=== PATIENT | male | born 2000 | race Caucasian/White ===

== ENCOUNTER → 2021-04-06 | Outpatient (CLI) | payer OTHER ==
--- NOTE | 2021-04-06 16:26 | US ---
EXAMINATION TYPE: US kidneys/renal and bladder DATE OF EXAM: 04/06/2021 COMPARISON: NONE CLINICAL HISTORY: 20-year-old male R31.0 GROSS HEMATURIA. & LLQ pain x 1 week TECHNIQUE: Multiple sonographic images of the kidneys and bladder are obtained. FINDINGS: EXAM MEASUREMENTS: Right Kidney: 10.2 x 5.3 x 4.1 cm Left Kidney: 11.7 x 5.6 x 5.2 cm Post Void Residual Volume: 0 mL Right Kidney: No hydronephrosis or masses seen. There are 2 simple cysts at the mid pole measurin ) 0.7 x 0.7 x 0.6 cm, 2) 1.2 x 1.2 x 1.2 cm Left Kidney: No hydronephrosis or masses seen Bladder: Initial partial distention limits evaluation. Bilateral Jets seen: No Normal Post Void Residual: Yes IMPRESSION: 1. No hydronephrosis. 2. 2 small incidental cysts in the right kidney measuring up to 1.2 cm.
== END | disposition home or self-care (01) ==
LOC: RADUSWWP 15:08
PROVIDERS: ATTEND Urology
DX: N28.1 Cyst of kidney, acquired (principal)
CPT/HCPCS: 76770

== ENCOUNTER → 2021-08-08 | Outpatient (CLI) | payer BC ==
--- NOTE | 2021-08-08 20:55 | CT ---
EXAMINATION TYPE: CT urogram wo/w con DATE OF EXAM: 08/08/2021 INDICATION: hematuria CT DLP: 1097.6 mGy.cm Automated Exposure Control for Dose Reduction was Utilized. TECHNIQUE AND CONTRAST: CT scan of the abdomen and pelvis is performed without and with IV Contrast, as per CT urogram protoc ol. The patient injected with 100 mL of Isovue 300. 3-D reconstruction images were generated on an in dependent workstation and reviewed. COMPARISON: Ultrasound dated 04/06/2021 FINDINGS: 12 mm nonobstructing stone is seen in the right renal pelvis. 5 mm partially obstructing stone seen a t the most inferior aspect of the left ureter, causing mild left-sided ureteric and left renal collec ting system fullness. No other significant radiodense urinary calculi. Bilateral renal cysts without suspicious feature. Grossly unremarkable kidneys otherwise. No suspicio us ureteric lesion. Grossly unremarkable urinary bladder. Unremarkable prostate and seminal vesicles. Unremarkable liver, gallbladder, spleen, pancreas, adrenals, abdominal aorta and IVC. Unremarkable no ndistended stomach, duodenum and small bowel. No gross colonic abnormality. Normal appendix. No suspi cious lymphadenopathy or sizable ascites. Unremarkable lung bases. No aggressive bone lesion. IMPRESSION: 12 mm right renal pelvis nonobstructing stone with 5 mm partially obstructing stone at the most infer ior aspect of the left ureter as described above. Recommend clinical correlation and correlation with urinalysis results. Further urology consultation can be considered. Other findings as described marj stovall
== END | disposition home or self-care (01) ==
LOC: RADCTMAIN 13:42
PROVIDERS: ATTEND Urology
DX: N20.2 Calculus of kidney with calculus of ureter (principal)
CPT/HCPCS: 74178; 74400; Q9967

== ENCOUNTER → 2021-08-15 | Outpatient (CLI) | payer BC ==
--- NOTE | 2021-08-15 15:25 | XR ---
EXAMINATION TYPE: XR KUB DATE OF EXAM: 08/15/2021 COMPARISON: 08/08/2021 HISTORY: Pain TECHNIQUE: One view abdominal series FINDINGS: The osseous structures are intact. The bowel gas pattern is nonspecific. There is a 11 mm calcification overlying the right kidney. No definite calcifications overlying the l eft kidney. There is a 4 mm calcific density in the left hemipelvis is stable. IMPRESSION: 1. Stable right renal calculus measuring 11 mm likely in the region of the renal pelvis. 2. There is approximate 4 mm calcification in the expected region of the left UVJ stable from prior e xam..
== END | disposition home or self-care (01) ==
LOC: RADXRMAIN 15:08
PROVIDERS: ATTEND Urology
DX: N20.0 Calculus of kidney (principal)
CPT/HCPCS: 74018

== ENCOUNTER → 2021-08-24 | Outpatient (CLI) | payer BC ==
--- NOTE | 2021-08-24 11:22 | XR ---
EXAMINATION TYPE: XR KUB DATE OF EXAM: 08/24/2021 HISTORY: Pain Comparison: None.Single KUB is submitted for interpretation. Findings: Right renal calculi: 1.2 cm calculus upper pole right kidney. Right ureteral calculi: None Visualized. Left renal calculi: None Visualized. Left ureteral calculi: 3 mm calculus in the region of the left UVJ. Pelvic calcifications: None Visualized. Bowel gas pattern is unremarkable. No free air. No mass effects. IMPRESSION: 1. As above
== END | disposition home or self-care (01) ==
LOC: RADXRMAIN 10:36
PROVIDERS: ATTEND Urology
DX: N20.2 Calculus of kidney with calculus of ureter (principal)
CPT/HCPCS: 74018

== ENCOUNTER → 2021-08-30 | Outpatient (CLI) | payer BC ==
--- NOTE | 2021-08-30 11:22 | XR ---
EXAMINATION TYPE: XR KUB DATE OF EXAM: 08/30/2021 10:32 AM CLINICAL HISTORY: Bilateral kidney stones. TECHNIQUE: Two supine KUB images of the abdomen are obtained. COMPARISON: Abdominal x-ray August 24, 2021. FINDINGS: Stable roughly 11-12 mm calculus midpole level right kidney medially at roughly L2 level. N o new nephrolithiasis. Overall nonobstructive bowel gas pattern. Visualized lung bases are clear. Visualized osseous structu res are intact IMPRESSION: As above.
== END | disposition home or self-care (01) ==
LOC: RADXRMAIN 10:12
PROVIDERS: ATTEND Urology
DX: N20.0 Calculus of kidney (principal)
CPT/HCPCS: 74018

== ENCOUNTER → 2021-09-04 | Outpatient (CLI) | payer BC ==
[2021-09-04 14:46] LABS: African American GFR (CKD) 145.4 (60.0-200.0); Anion Gap 11.6 mmol/L (10.00-18.00); BUN/Creat Ratio 17.13 Ratio (12.00-20.00); Blood Urea Nitrogen 14.8 mg/dL (9.0-27.0); Calcium 9.2 mg/dL (8.7-10.3); Carbon Dioxide 20.1 mmol/L (20.0-27.5); Non-African American GFR(CKD) 125.5 (60.0-200.0)
[2021-09-04 16:14] LABS: Appearance,Urine Turbid (Clear); Bacteria,Urine None Seen /HPF (None Seen); Bilirubin,Urine Negative (Negative); Blood,Urine Moderate (Negative); Color,Urine Yellow (Yellow); Ketones,Urine Negative (Negative); Nitrite,Urine Negative (Negative); Specific Gravity,Urine 1.021 (1.001-1.030)
[2021-09-04 16:54] LABS: Basophils # (A) 0.05 X 10*3/uL (0.00-0.10); Basophils % (A) 0.8 %; Eosinophils # (A) 0.14 X 10*3/uL (0.04-0.35); Eosinophils % (A) 2.3 %; HCT 44.9 % (39.6-50.0); HGB 14.4 g/dL (13.0-17.0); Immature Grans, Automated 0.3 %; Lymphocytes # (A) 2.51 X 10*3/uL (0.90-5.00); Lymphocytes % (A) 41.1 %; MCH 28.9 pg (27.0-32.0); MCHC 32.1 g/dL (32.0-37.0); MCV 90.2 fL (80.0-97.0); Mean Platelet Volume 13.3 fL (9.5-12.2); Monocytes # (A) 0.54 X 10*3/uL (0.20-1.00); Monocytes % (A) 8.9 %; NRBC Per 100 WBC 0 /100 WBCS (0.0-0.0); Neutrophils # (A) 2.84 X 10*3/uL (1.80-7.70); Neutrophils % (A) 46.6 %; Platelet Count 192 X 10*3/uL (140-440); RBC 4.98 X 10*6/uL (4.40-5.60); RDW 12.1 % (11.5-14.5)
== END | disposition home or self-care (01) ==
LOC: LABPAT 10:24
PROVIDERS: ATTEND Urology
DX: Z01.812 Encounter for preprocedural laboratory examination (principal); N20.0 Calculus of kidney; N20.1 Calculus of ureter
CPT/HCPCS: 80048; 81001; 85025; 87086

== ENCOUNTER 2021-09-11 12:46 | Day surgery (SDC) | payer BC ==
[2021-09-07 10:44] VITALS: BMI 21.7
--- NOTE | 2021-09-11 10:02 | P.HPIHPCON ---
History of Present Illness H&P Date: 09/11/21 Chief Complaint: Left-sided ureteral stone, right-sided renal stone This is a 20-year-old male with history of a 3 mm left-sided ureteral stone, and 1.2 cm right-sided renal pelvis stone, he has failed medical expulsive therapy for his ureteral stone, recently underwent ESWL which failed to fragment the stone. Discussed given that the stone is ESWL resistance, the next step would be to proceed with ureteroscopy with holmium laser. Discussed with him the risk which includes but not limited to bleeding, infection, injury to ureter. Discussed with him also we'll address his renal pelvis stone on the contralateral side of the same setting. He understood all the risk and agree to proceed Consent for Procedure: I have explained the operation/procedure to the patient, including the risks, benefits, side effects, alternative therapies (including not receiving the proposed treatment or service), the likelihood of the patient achieving his/her goals, and potential recuperation problems for the procedure/sedation/analgesia, as well as any blood products, if indicated. I also explained to the patient the risks, benefits and side effects of the alternatives, as well as the risks related to not receiving the proposed procedure, care, treatment, or services. Past Medical History Past Medical History: GERD/Reflux, Neurologic Disorder Additional Past Medical History / Comment(s): KIDNEY STONES. SEASONAL ALLERGIES. MIGRAINES History of Any Multi-Drug Resistant Organisms: None Reported Additional Past Surgical History / Comment(s): CYSTOSCOPY AND LITHOTRIPSY Past Anesthesia/Blood Transfusion Reactions: No Reported Reaction Smoking Status: Never smoker - Past Family History Mother Family Medical History: No Reported History Medications and Allergies Home Medications Medication Instructions Recorded Confirmed Type Cholecalciferol [Vitamin D3 (25 25 mcg PO DAILY 09/07/21 09/07/21 History Mcg = 1000 Iu)] Escitalopram [Lexapro] 5 mg PO DAILY 09/07/21 09/07/21 History Lansoprazole [Prevacid] 15 mg PO DAILY 09/07/21 09/07/21 History Montelukast [Singulair] 10 mg PO DAILY 09/07/21 09/07/21 History Topiramate [Topamax] 25 mg PO DAILY 09/07/21 09/07/21 History Allergies Allergy/AdvReac Type Severity Reaction Status Date / Time No Known Allergies Allergy Verified 09/07/21 10:39 Surgical - Exam - General no distress, moderate pain - Eyes normal ocular movement, no pale - Respiratory normal expansion, normal respiratory effort - Abdomen Abdomen: soft, non tender Assessment and Plan Assessment: OR for bilateral ureteroscopy holmium laser lithotripsy, stone basketing and stent insertion
[~2021-09-11 12:46] MED LIST: DEXAMETHASONE SOD PHOSPHATE 4 MG/ML 1 ML VIAL IV ONE; HYDROmorphone 0.5 MG/0.5 ML SYRINGE IVP PRN; LIDOCAINE 1% (10MG/ML) FOR IV START INTRADERMA PRN; METOCLOPRAMIDE 5 MG/ML 2 ML VIAL IVP PRN; ONDANSETRON 4 MG/2 ML VIAL IVP ONE
--- NOTE | 2021-09-11 13:06 | XR ---
EXAMINATION TYPE: XR KUB DATE OF EXAM: 09/11/2021 HISTORY: Pain Comparison: 08/30/2021ingle KUB is submitted for interpretation. Findings: Right renal calculi: 1.1 cm calculus right kidney unchanged from prior study. Right ureteral calculi: None Visualized. Left renal calculi: None Visualized. Left ureteral calculi: None Visualized. Pelvic calcifications: None Visualized. Bowel gas pattern is unremarkable. No free air. No mass effects. IMPRESSION: 1. As above
[2021-09-11] MEDS: LACTATED RINGERS 1,000 ML IV SCH ×2 (13:27→17:30)
[2021-09-11] MEDS ORDERED: PROPOFOL 10 MG/ML 20 ML VIAL IV ONE (15:03)
[2021-09-11] MEDS ORDERED: MIDAZOLAM 2 MG/2 ML VIAL ONE (15:03)
[2021-09-11] MEDS ORDERED: ROCURONIUM 10 MG/ML (5 ML VIAL) IV ONE (15:03)
[2021-09-11] MEDS ORDERED: LIDOCAINE 2% INJ 20 MG/ML (2 ML VIAL) ONE (15:03)
[2021-09-11] MEDS ORDERED: fentaNYL (PF) 50 MCG/ML 2 ML AMP ONE (15:03)
[2021-09-11] MEDS ORDERED: SUCCINYLCHOLINE CHLORIDE 100 MG/5 ML SYR IV ONE (15:03)
[2021-09-11] MEDS ORDERED: LACTATED RINGERS 1,000 ML IV ONE (16:19)
--- NOTE | 2021-09-11 16:23 | P.OP ---
Date of Procedure: 09/11/21 Preoperative Diagnosis: right-sided renal stone, left-sided ureteral stone Postoperative Diagnosis: same Procedure(s) Performed: cystoscopy, bilateral ureteroscopy, right holmium laser lithotripsy, stone basketing and stent insertion Implants: 6FR x 26 cm in right ureter left on string Anesthesia: JOSEA Surgeon: Edison Livingston Estimated Blood Loss (ml): 5 Pathology: other Condition: stable Disposition: PACU Indications for Procedure: This is a 20-year-old male with history of a 3 mm left-sided ureteral stone, and 1.2 cm right-sided renal pelvis stone, he has failed medical expulsive therapy for his ureteral stone, recently underwent ESWL which failed to fragment the stone. Discussed given that the stone is ESWL resistance, the next step would be to proceed with ureteroscopy with holmium laser. Discussed with him the risk which includes but not limited to bleeding, infection, injury to ureter. Discussed with him also we'll address his renal pelvis stone on the contralateral side of the same setting. He understood all the risk and agree to proceed Description of Procedure: patient brought to the operating room, general anesthesia was induced. He was prepped and draped so fashion a placement dorsal lithotomy position. Cystoscopy fitted with 21-Portuguese sheath was inserted per urethra, cystoscopy was performed showed no abnormality within the bladder. Attention was then carried to the left ureteral orifice, semirigid ureteroscope was advanced up the left ureteral orifice, no stone was seen in the distal ureter, at this time the scope was advanced all the way up to the proximal ureter which showed no evidence of stone. Pullback ureteroscopy was performed which showed no injury to the ureter or any stones. At this time attention was carried to the right side which was intubated with a sensor wire. Next under fluoroscopy 11-13 fr access sheath was advanced over the wire. renoscopy was performed showed a stone in the renal pelvis Using the holmium laser the stone was dusted. Repeat renoscopy showed no injury to the kidney or sizable fragments. one of the fragments was removed and sent for analysis.Pullback ureteroscopy was performed which showed no injury to the ureter or ureteral stones. As the ureteroscope was withdrawn a sensor wire was advanced through. Next a ureteral stent was passed over the wire, the proximal curl was visualized on fluoroscopy and the distal curl was visualized using the cystoscope the stent was left on a string and taped to the patient penis. Patient tolerated the procedure well was taken to recovery in stable condition
[2021-09-11 16:40] VITALS: TEMP 97
[2021-09-11] MEDS ORDERED: KETOROLAC 15 MG/ML 1 ML VIAL ONE (17:48)
[2021-09-11 18:14] VITALS: BP 112/71; PULSE 86; RESP 20
--- NOTE | 2021-09-11 22:20 | FL ---
Intraoperative/procedural fluoroscopic services were provided. Total fluoroscopy time is 43 seconds w ith a total of 1 submitted images to PACS. Please see the operative/procedural note for further detai ls.
== END 2021-09-11 18:27 | disposition home or self-care (01) ==
LOC: OR 12:46
PROVIDERS: ATTEND Urology
DX: N20.2 Calculus of kidney with calculus of ureter (principal); K21.9 Gastro-esophageal reflux disease without esophagitis; G43.909 Migraine, unspecified, not intractable, without status migrainosus; Z79.899 Other long term (current) drug therapy
CPT/HCPCS: 82365; 74018; 52356; C2625; C1769; J2250; J1100; J2765; J0690; J2405; J3010; J1885; J0330; J2704; J2001

== ENCOUNTER → 2021-10-09 | Outpatient (CLI) | payer BC ==
--- NOTE | 2021-10-09 21:06 | US ---
EXAMINATION TYPE: US kidneys/renal and bladder DATE OF EXAM: 10/09/2021 COMPARISON: US, XR CLINICAL HISTORY: N20.1 CALCULUS OF URETER. Calculus of ureter. EXAM MEASUREMENTS: Right Kidney: 10.1 x 6.2 x 3.7 cm Left Kidney: 11.8 x 5.4 x 5.1 cm Right Kidney: Complex area seen laterally at the lower pole: 1.7 x 1.5 x 1.4 cm. Anechoic area seen mid: 1.1 x 0.9 x 1.0 cm. Left Kidney: Anechoic area seen laterally at the mid pole: 1.3 x 1.4 x 1.3 cm. Hyperechoic focus seen laterally: 0.4 x 0.5 x 0.3 cm. Bladder: Appears anechoic Bilateral Jets seen: Yes IMPRESSION: 1. Right renal cyst with thin internal septation measuring up to 1.7 cm. 2. Left renal simple appearing cyst. 3. Left nonobstructing renal calculi suggested. 4. No evidence of obstructive uropathy.
== END | disposition home or self-care (01) ==
LOC: RADUSWWP 15:58
PROVIDERS: ATTEND Urology
DX: N28.1 Cyst of kidney, acquired (principal)
CPT/HCPCS: 76770

== ENCOUNTER 2021-11-30 02:01 | Emergency (ER) | payer BC ==
[2021-11-30 02:45] VITALS: BP 110/74; PULSE 90; RESP 18; TEMP 98.3
--- NOTE | 2021-11-30 03:00 | ED ---
General Adult HPI - General Chief complaint: Urogenital Stated complaint: Testicle Pain Time Seen by Provider: 11/30/21 02:49 Source: patient Mode of arrival: ambulatory - History of Present Illness Initial comments: Dictation was produced using [employer] dictation software. please excuse any grammatical, word or spelling errors. Chief Complaint: 21-year-old male presents emergency department for right testicular pain History of Present Illness: 21-year-old male presents emergency department for right testicular pain. He states his symptoms began 3-4 hours prior to arrival. Patient states that he felt a acute sharp pain in his right testicle. He measures the pain as 4-5 out of 10. No nausea vomiting or abdominal pain. Denies any dysuria. No history of congenital abnormalities. Not sexually active. The ROS documented in this emergency department record has been reviewed and confirmed by me. Those systems with pertinent positive or negative responses have been documented in the HPI. All other systems are other negative and/or noncontributory. PHYSICAL EXAM: General Impression: Alert and oriented x3, not in acute distress HEENT: Normocephalic atraumatic, extra-ocular movements intact, pupils equal and reactive to light bilaterally, mucous membranes moist. Cardiovascular: Heart regular rate and rhythm Chest: Able to complete full sentences, no retractions, no tachypnea Musculoskeletal: Pulses present and equal in all extremities, no peripheral edema Motor: no focal deficits noted Neurological: CN II-XII grossly intact, no focal motor or sensory deficits noted Skin: Intact with no visualized rashes Psych: Normal affect and mood : Normal testicular lie, no improvement of symptoms with elevation, testicles are relatively similar in size, no scrotal abnormalities, focal tenderness at the superior pole of the right testicle ED course:21-year-old male presents emergency department with right testicular pain. Vital Signs upon arrival are within acceptable limits. Scrotal ultrasound shows epididymal cyst. Patient be discharged with referral to urology. - Related Data Home Medications Medication Instructions Recorded Confirmed Cholecalciferol [Vitamin D3 (25 25 mcg PO DAILY 09/07/21 09/11/21 Mcg = 1000 Iu)] Escitalopram [Lexapro] 5 mg PO DAILY 09/07/21 09/11/21 Lansoprazole [Prevacid] 15 mg PO DAILY 09/07/21 09/11/21 Montelukast [Singulair] 10 mg PO DAILY 09/07/21 09/11/21 Topiramate [Topamax] 25 mg PO DAILY 09/07/21 09/11/21 Previous Rx's Medication Instructions Recorded Ketorolac [Toradol] 10 mg PO Q6HR PRN #15 tab 09/11/21 Allergies Allergy/AdvReac Type Severity Reaction Status Date / Time No Known Allergies Allergy Verified 11/30/21 02:45 Review of Systems ROS Statement: Those systems with pertinent positive or pertinent negative responses have been documented in the HPI. ROS Other: All systems not noted in ROS Statement are negative. Past Medical History Past Medical History: No Reported History Additional Past Medical History / Comment(s): kidney stones History of Any Multi-Drug Resistant Organisms: None Reported Past Surgical History: No Surgical Hx Reported Past Psychological History: Depression Smoking Status: Never smoker Past Alcohol Use History: None Reported Past Drug Use History: None Reported Course Vital Signs 11/30/21 02:40 Temperature 98.3 F Pulse Rate 90 Respiratory 18 Rate Blood Pressure 110/74 O2 Sat by Pulse 100 Oximetry Disposition Clinical Impression: Epididymal cyst Disposition: HOME SELF-CARE Condition: Good Instructions (If sedation given, give patient instructions): Testicle Pain (ED) Is patient prescribed a controlled substance at d/c from ED?: No Referrals: Cira Briscoe MD [Primary Care Provider] - 1-2 days Time of Disposition: 03:56
--- NOTE | 2021-11-30 03:47 | US ---
EXAMINATION TYPE: US scrotum with doppler. Grayscale and color Doppler Duplex imaging performed of t loree scrotum. DATE OF EXAM: 11/30/2021 COMPARISON: NONE CLINICAL HISTORY: testicular pain. right testicular pain x 4 hours EXAM MEASUREMENTS: TESTICLES: Right Testicle: 4.6 x 2.7 x 2.0 cm Left Testicle: 4.9 x 2.9 x 2.4 cm EPIDIDYMIS HEAD: Right Epididymis: 0.8 x 1.1 x 1.4 cm Left Epididymis: 0.6 x 0.6 x 0.9 cm Doppler performed to assess for testicular vascularity; good bilateral color flow and waveforms are s een. There is no evidence of testicular torsion. Presence of hydroceles: No Presence of varicoceles: No Cyst in epi head seen measuring 0.9 x 0.9 x 0.7cm IMPRESSION: There is simple cyst in the right epididymis. No evidence of testicular torsion or mass.
[2021-11-30 05:19] LABS: Amorphous Sediment,Urine Occasional /hpf; Appearance,Urine Turbid (Clear); Bilirubin,Urine Negative (Negative); Blood,Urine Negative (Negative); Color,Urine Yellow; Glucose,Urine (UA) Negative (Negative); Ketones,Urine Negative (Negative); Leukocyte Esterase,Urine Negative (Negative); Nitrite,Urine Negative (Negative); Protein,Urine Trace (Negative); Specific Gravity,Urine 1.018 (1.001-1.035); WBC,Urine <1 /hpf (0-5)
== END 2021-11-30 05:01 | disposition home or self-care (01) ==
LOC: EC 02:01
DX: N50.3 Cyst of epididymis (principal)
CPT/HCPCS: 76870; 81001; 93975; 99284; 99285

== ENCOUNTER → 2023-09-05 | Outpatient (CLI) | payer BC ==
--- NOTE | 2023-09-07 14:18 | XR ---
EXAMINATION TYPE: XR foot complete LT DATE OF EXAM: 09/05/2023 COMPARISON: None HISTORY: Fall, pain TECHNIQUE: 3 view left foot FINDINGS: No acute fracture or dislocation is evident. Joint spaces are preserved. Soft tissues are n ormal. Plantar arch is preserved.. Follow up exams can be performed 7-10 days from acute trauma for c ontinued pain. IMPRESSION: 1. Normal three-view left foot.
--- NOTE | 2023-09-07 14:22 | XR ---
EXAMINATION TYPE: XR ankle complete LT DATE OF EXAM: 09/05/2023 COMPARISON: None HISTORY: Pain TECHNIQUE: 3 view left ankle FINDINGS: No acute fracture or dislocation is evident. Ankle mortise soft tissues are normal. Follow up exams can be performed 7-10 days from acute trauma for continued pain. IMPRESSION: 1. No acute osseous abnormality left ankle.
--- NOTE | 2023-09-07 14:43 | XR ---
EXAMINATION TYPE: XR wrist complete RT DATE OF EXAM: 09/05/2023 COMPARISON: None HISTORY: Pain TECHNIQUE: 4 view right wrist FINDINGS: No acute fracture or dislocation is evident. Joint spaces are preserved. Soft tissues appea r normal. There is pain at the anatomic snuff box, nuclear medicine bone scan could be performed for additional evaluation. Follow up exams can be performed 7-10 days from acute trauma for continued pain. IMPRESSION: 1. No acute osseous abnormality right wrist
--- NOTE | 2023-09-07 14:44 | XR ---
EXAMINATION TYPE: XR hand complete RT DATE OF EXAM: 09/05/2023 COMPARISON: None HISTORY: Pain, fall TECHNIQUE: 3 view right hand FINDINGS: No acute fracture or dislocation is evident. Joint spaces are preserved. Soft tissues are n ormal. Follow up exams can be performed 7-10 days from acute trauma for continued pain IMPRESSION: 1. No acute osseous abnormality right hand
== END | disposition home or self-care (01) ==
LOC: RADXRYALE 13:05
PROVIDERS: ATTEND Internal Medicine
DX: M25.572 Pain in left ankle and joints of left foot (principal); M25.531 Pain in right wrist